=== PATIENT | female | born 1995 | race Caucasian/White ===

== ENCOUNTER 2018-11-13 15:35 | Emergency (ER) | payer BC, OTHER ==
[2018-11-13 16:53] VITALS: BP 120/79
--- NOTE | 2018-11-13 17:01 | UC ---
Knee Pain HPI - HPI Summary HPI Summary: 23-year-old female who complains of left knee pain. Approximate 9 days ago she was in [facility] and she did a lot of running and then she jumped and landed on her leg causing left knee pain. She states since then she has been able to do most everything but has occasional "flareups" of knee pain and left knee swelling. - History of Current Complaint Chief Complaint: UCLowerExtremity Stated Complaint: LEFT KNEE INJURY Time Seen by Provider: 11/13/18 16:44 Hx Obtained From: Patient Hx Last Menstrual Period: mirena ?: No Onset/Duration: Sudden Onset Severity Initially: Mild Severity Currently: Mild Pain Intensity: 1 Character: Dull, Aching Aggravating Factor(s): Prolonged Standing Alleviating Factor(s): Rest Associated Signs And Symptoms: Positive: Negative Able to Bear Weight: Yes - Allergies/Home Medications Allergies/Adverse Reactions: Allergies Allergy/AdvReac Type Severity Reaction Status Date / Time bupropion [From Wellbutrin] Allergy Rash Verified 11/13/18 16:46 Home Medications: Home Medications Dextroamphetamine/Amphetamine [Adderall 30 mg-] 1 tab PO DAILY 11/13/18 [ History Confirmed 11/13/18] Ibuprofen TAB* [Advil TAB*] 600 mg PO Q6H PRN 11/13/18 [History Confirmed ] Levonorgestrel (Iud) [Mirena IUD] 20 mcg IU ONCE 11/13/18 [History Confirmed ] Venlafaxine EXT RELEASE CAP* [Effexor Xr CAP*] 37.5 mg PO DAILY 11/13/18 [ History Confirmed 11/13/18] PMH/Surg Hx/FS Hx/Imm Hx Previously Healthy: Yes - Surgical History Surgical History: Yes Surgery Procedure, Year, and Place: T&A - Family History Known Family History: Positive: Non-Contributory - Social History Alcohol Use: Weekly Substance Use Type: None Smoking Status (MU): Never Smoked Tobacco Review of Systems All Other Systems Reviewed And Are Negative: Yes Motor: Positive: Negative Neurovascular: Positive: Negative Musculoskeletal: Positive: Other: - Occasional left knee pain every day which becomes worse when she is working more at the end of the day. Neurological: Positive: Negative Is Patient Immunocompromised?: No Physical Exam Triage Information Reviewed: Yes Appearance: Well-Appearing, No Pain Distress, Well-Nourished Vital Signs: Initial Vital Signs Temp 98.4 F 11/13/18 16:49 Pulse 102 11/13/18 16:49 Resp 18 11/13/18 16:49 BP 120/79 11/13/18 16:49 Pulse Ox 99 11/13/18 16:49 Vital Signs Reviewed: Yes Musculoskeletal Exam: Normal Musculoskeletal: Positive: Strength Intact, ROM Intact, No Edema, Other: - Minimal lateral left knee tenderness, no bruising, erythema, deformity or swelling. Ligaments are intact. Patellar ligaments are intact. Full range of motion. Neurological: Positive: Alert, Muscle Tone Normal Psychological Exam: Normal Skin Exam: Normal Knee Pain Course/Dx - Course Course Of Treatment: Left Knee x-ray: Negative - Differential Dx/Diagnosis Provider Diagnosis: Strain of left knee Discharge - Sign-Out/Discharge Documenting (check all that apply): Patient Departure All imaging exams completed and their final reports reviewed: Yes - Discharge Plan Condition: Fair Disposition: HOME Patient Education Materials: Knee Sprain (DC) Referrals: Olaf Dickey MD [Medical Doctor] - No Primary Care Phys,NOPCP [Primary Care Provider] - Additional Instructions: Motrin every 8 hours for pain, avoid movements that cause pain, apply heat to the sore area, follow-up with the orthopedist if further concerns over the next 4-5 days. - Billing Disposition and Condition Condition: FAIR Disposition: Home
== END 2018-11-13 17:31 | disposition home or self-care (01) ==
LOC: UCCORT 15:35
DX: S83.92XA Sprain of unspecified site of left knee, initial encounter (principal); X50.0XXA Overexertion from strenuous movement or load, initial encounter; X50.3XXA Overexertion from repetitive movements, initial encounter; Y93.89 Activity, other specified; Y92.9 Unspecified place or not applicable
CPT/HCPCS: 99201; G0463

== ENCOUNTER 2018-12-30 14:34 | Emergency (ER) | payer OTHER ==
[2018-12-30 14:54] VITALS: BP 141/86
--- NOTE | 2018-12-30 15:54 | UC ---
Complaint Female HPI - HPI Summary HPI Summary: Pt presents with request for STD testing. Pt denies any symptoms but has begun new relationship and has been sexually active. - History Of Current Complaint Chief Complaint: UCGeneralIllness Stated Complaint: PERSONAL Time Seen by Provider: 12/30/18 14:58 Hx Obtained From: Patient Hx Last Menstrual Period: has IUD ?: No Severity Currently: None Pain Intensity: 0 Aggravating Factor(s): Nothing Associated Signs And Symptoms: Positive: Negative - Risk Factors Ectopic Risk Factor: Negative Ovarian Torsion Risk Factor: Reproductive Age - Allergies/Home Medications Allergies/Adverse Reactions: Allergies Allergy/AdvReac Type Severity Reaction Status Date / Time bupropion [From Wellbutrin] Allergy Rash Verified 12/30/18 14:50 PMH/Surg Hx/FS Hx/Imm Hx Previously Healthy: Yes - Surgical History Surgical History: Yes Surgery Procedure, Year, and Place: T&A - Family History Known Family History: Positive: Non-Contributory - Social History Occupation: Employed Full-time Lives: With Family Alcohol Use: Weekly Alcohol Amount: once/week Substance Use Type: None Smoking Status (MU): Never Smoked Tobacco Have You Smoked in the Last Year: No Review of Systems All Other Systems Reviewed And Are Negative: Yes Constitutional: Positive: Negative Skin: Positive: Negative Eyes: Positive: Negative ENT: Positive: Negative Respiratory: Positive: Negative Cardiovascular: Positive: Negative Gastrointestinal: Positive: Negative Genitourinary: Positive: Negative Motor: Positive: Negative Neurovascular: Positive: Negative Musculoskeletal: Positive: Negative Neurological: Positive: Negative Psychological: Positive: Negative Is Patient Immunocompromised?: No Physical Exam Triage Information Reviewed: Yes Appearance: Well-Appearing Vital Signs: Initial Vital Signs Temp 97.8 F 12/30/18 14:51 Pulse 83 12/30/18 14:51 Resp 18 12/30/18 14:51 BP 141/86 12/30/18 14:51 Pulse Ox 99 12/30/18 14:51 Vital Signs Reviewed: Yes Eye Exam: Normal ENT: Positive: Hearing grossly normal Dental Exam: Normal Neck exam: Normal Respiratory Exam: Normal Cardiovascular Exam: Normal Abdominal Exam: Normal Abdomen Description: Positive: Nontender Musculoskeletal Exam: Normal Neurological Exam: Normal Psychological Exam: Normal Skin Exam: Normal Complaint Female Dx - Differential Dx/Diagnosis Differential Diagnosis/HQI/PQRI: Sexually Transmitted Disease Provider Diagnosis: Sexually transmitted disease counseling Discharge - Sign-Out/Discharge Documenting (check all that apply): Patient Departure All imaging exams completed and their final reports reviewed: No Studies - Discharge Plan Condition: Stable Disposition: HOME Patient Education Materials: Safe Sex (ED) Referrals: [facility] [Outside] [facility] [[facility]] No Primary Care Phys,NOPCP [Primary Care Provider] - - Billing Disposition and Condition Condition: STABLE Disposition: Home
[2018-12-31 15:27] LABS: HIV 4th Generation Negative (Negative)
[2019-01-03 11:44] LABS: Herpes Simplex Virus I IgG AB Positive (Negative); Herpes Simplex Virus II IgG AB Negative (Negative)
[2019-01-03 23:56] LABS: Chlamydia trachomatis NAA Negative (Negative); Neisseria gonorrhoeae (GC) NAA Negative (Negative)
--- NOTE | 2019-01-04 09:23 | UC ---
- Progress Note Progress Note: Laboratory results come back from December 30, 2018. 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 Gonorrhea chlamydia are both negative. All other results are negative. Nursing to call patient and explained HSV-1 IgG indicates prior infection. Course/Dx - Diagnoses Provider Diagnoses: Sexually transmitted disease counseling Discharge - Sign-Out/Discharge Documenting (check all that apply): Patient Departure All imaging exams completed and their final reports reviewed: No Studies - Discharge Plan Condition: Stable Disposition: HOME Patient Education Materials: Safe Sex (ED) Referrals: [facility] [place] [Outside] [facility] [Outside] No Primary Care Phys,NOPCP [Primary Care Provider] - - Billing Disposition and Condition Condition: STABLE Disposition: Home
== END 2018-12-30 15:55 | disposition home or self-care (01) ==
LOC: UCCORT 14:34
DX: Z11.3 Encounter for screening for infections with a predominantly sexual mode of transmission (principal); Z70.8 Other sex counseling
CPT/HCPCS: 36415; 86695; 86696; 86780; 87389; 87491; 87591; 99211; G0463